=== PATIENT | male | born 1990 | race Caucasian/White ===

== ENCOUNTER 2022-06-13 14:10 | Emergency (ER) | payer OTHER ==
[2022-06-13 15:16] LABS: CORONAVIRUS COVID-19 NAA POSITIVE (NEGATIVE); INFLUENZA A NAA NEGATIVE (NEGATIVE); INFLUENZA B NAA NEGATIVE (NEGATIVE)
[2022-06-13] MEDS ORDERED: Acetaminophen 500 MG Tab PO ONE (17:15)
[2022-06-13 17:38] VITALS: BP 116/75; PULSE 110
== END 2022-06-13 17:38 | disposition home or self-care (01) ==
LOC: MW.ED 14:10
DX: U07.1 COVID-19 (principal); M54.6 Pain in thoracic spine; Z79.899 Other long term (current) drug therapy
CPT/HCPCS: 0240U; 99283; A9270